=== PATIENT | male | born 1965 | race Caucasian/White ===

== ENCOUNTER 2017-04-29 23:05 | Emergency (ER) | payer MEDICAID ==
[~2017-04-29 23:05] MED LIST: HYDROCHLOROTHIA25 MG PO; LISINOPRIL10 MG PO; MELOXICAM15 M1 PO; TYLENOL WITH CO1 TA2 PO
[2017-04-30 02:12] LABS: PLATELET COUNT 170 x10^3mcL (130-400); RED CELL DISTRIBUTION WIDTH 13.2 % (11.5-14.5)
[2017-04-30 02:15] LABS: CALCIUM 8.2 mg/dL (8.5-10.1); CARBON DIOXIDE 28.3 mmol/L (21-32); CHLORIDE SERUM 99 mmol/L (98-107); CREATININE SERUM 0.7 mg/dL (0.7-1.3); GFR1 > 60 mL/min; GLUCOSE SERUM 126 mg/dL (74-106); POTASSIUM SERUM 3.1 mmol/L (3.5-5.1); SODIUM SERUM 136 mmol/L (136-145)
[2017-04-30 02:20] LABS: ALKALINE PHOSPHATASE 103 U/L (46-116); ALT/SGPT 18 U/L (16-63); AST/SGOT 20 U/L (15-37); BILIRUBIN TOTAL 0.3 mg/dL (0.20-1.00); TOTAL PROTEIN, SERUM 7.2 g/dL (6.4-8.2); URIC ACID 5.4 mg/dL (3.5-7.2)
[2017-04-30 02:24] LABS: ALBUMIN 2.9 g/dL (3.4-5.0)
[2017-04-30 03:02] VITALS: BP 128/84
== END 2017-04-30 03:02 | disposition home or self-care (01) ==
LOC: ED 23:05
PROVIDERS: Emergency Medicine
DX: M25.472 Effusion, left ankle (principal); M25.471 Effusion, right ankle; M06.872 Other specified rheumatoid arthritis, left ankle and foot; M06.871 Other specified rheumatoid arthritis, right ankle and foot
CPT/HCPCS: 36415; Q0092

== ENCOUNTER 2017-05-01 21:40 | Emergency (ER) | payer MEDICAID ==
[2017-05-01 21:48] VITALS: BP 156/99
== END 2017-05-01 22:27 | disposition home or self-care (01) ==
LOC: ED 21:40
DX: R60.0 Localized edema (principal); M06.872 Other specified rheumatoid arthritis, left ankle and foot; M06.871 Other specified rheumatoid arthritis, right ankle and foot; F17.210 Nicotine dependence, cigarettes, uncomplicated; I10 Essential (primary) hypertension; Z79.1 Long term (current) use of non-steroidal anti-inflammatories (NSAID); Z79.891 Long term (current) use of opiate analgesic; Z79.899 Other long term (current) drug therapy

== ENCOUNTER 2017-05-10 23:54 | Emergency (ER) | payer MEDICAID ==
[2017-05-11 03:08] LABS: CALCIUM 8.2 mg/dL (8.5-10.1); CARBON DIOXIDE 26.5 mmol/L (21-32); CHLORIDE SERUM 103 mmol/L (98-107); CREATININE SERUM 0.7 mg/dL (0.7-1.3); GFR1 > 60 mL/min; GLUCOSE SERUM 86 mg/dL (74-106); POTASSIUM SERUM 3.4 mmol/L (3.5-5.1); SODIUM SERUM 139 mmol/L (136-145)
[2017-05-11 03:57] VITALS: BP 122/71
== END 2017-05-11 03:57 | disposition home or self-care (01) ==
LOC: ED 23:54
PROVIDERS: Emergency Medicine
DX: R60.0 Localized edema (principal); M25.571 Pain in right ankle and joints of right foot; M25.572 Pain in left ankle and joints of left foot; E87.6 Hypokalemia; I10 Essential (primary) hypertension; B19.20 Unspecified viral hepatitis C without hepatic coma; Z86.14 Personal history of Methicillin resistant Staphylococcus aureus infection
CPT/HCPCS: 36415

== ENCOUNTER 2017-07-16 02:07 | Emergency (ER) | payer OTHER ==
[2017-07-16 04:31] VITALS: BP 121/66
== END 2017-07-16 04:31 | disposition home or self-care (01) ==
LOC: ED 02:07
DX: R60.0 Localized edema (principal); F17.210 Nicotine dependence, cigarettes, uncomplicated; I10 Essential (primary) hypertension; M06.9 Rheumatoid arthritis, unspecified; B19.20 Unspecified viral hepatitis C without hepatic coma; Z79.899 Other long term (current) drug therapy
CPT/HCPCS: J1885

== ENCOUNTER 2017-07-23 14:00 | Emergency (ER) | payer OTHER ==
[2017-07-23 14:50] VITALS: BP 150/96
== END 2017-07-23 15:49 | disposition home or self-care (01) ==
LOC: ED 14:00
DX: R60.0 Localized edema (principal)

== ENCOUNTER 2017-07-27 14:32 | Emergency (ER) | payer OTHER ==
[2017-07-27 15:53] VITALS: BP 148/76
== END 2017-07-27 15:53 | disposition other institution (70) ==
LOC: ED 14:32
DX: Z02.89 Encounter for other administrative examinations (principal); F11.10 Opioid abuse, uncomplicated; I10 Essential (primary) hypertension; G89.29 Other chronic pain; R60.0 Localized edema; M06.9 Rheumatoid arthritis, unspecified; F17.210 Nicotine dependence, cigarettes, uncomplicated; B19.20 Unspecified viral hepatitis C without hepatic coma; Z79.899 Other long term (current) drug therapy

== ENCOUNTER 2017-08-01 05:46 | Emergency (ER) | payer OTHER ==
[2017-08-01 06:21] VITALS: BP 145/98
== END 2017-08-01 06:21 | disposition home or self-care (01) ==
LOC: ED 05:46
DX: R60.0 Localized edema (principal); I10 Essential (primary) hypertension; M06.9 Rheumatoid arthritis, unspecified